=== PATIENT | male | born 1985 | race Caucasian/White ===

== ENCOUNTER 2024-05-30 00:21 | Emergency (ER) | payer OTHER, SELFPAY ==
[~2024-05-30] VITALS: Ht 170.2 cm; Wt 121.0 kg
[2024-05-30 00:24] VITALS: BP 140/100; TEMP 99.3; O2SAT 95
== END 2024-05-30 06:45 | disposition left against medical advice (07) ==
LOC: M ED 00:21
DX: Z53.21 Procedure and treatment not carried out due to patient leaving prior to being seen by health care provider (principal)

== ENCOUNTER → 2024-06-25 | Outpatient (CLI) | payer OTHER | LOC: M OUTALCOH 13:17 | PROVIDERS: ATTEND Psychiatry & Neurology Psychiatry | DX: F10.10 Alcohol abuse, uncomplicated (principal); F17.200 Nicotine dependence, unspecified, uncomplicated ==

== ENCOUNTER 2024-07-25 23:45 | Emergency (ER) | payer SELFPAY ==
[~2024-07-25] VITALS: Ht 177.8 cm; Wt 119.7 kg
[2024-07-25 23:53] VITALS: TEMP 98.4
[2024-07-26 00:15] VITALS: BP 144/96; O2SAT 94
== END 2024-07-26 00:51 | disposition home or self-care (01) ==
LOC: M ED 23:45
DX: F10.129 Alcohol abuse with intoxication, unspecified (principal); M54.50 Low back pain, unspecified

== ENCOUNTER 2024-08-06 23:23 | Emergency (ER) | payer SELFPAY ==
[~2024-08-06] VITALS: Ht 180.3 cm; Wt 102.3 kg
[2024-08-07 00:29] LABS: HEMATOCRIT 51.3 % (42.0-52.0); HEMOGLOBIN 17.5 g/dl (13.5-17.5); MEAN CORPUSCULAR HEMOGLOBIN 33.7 pg (27.0-33.0); MEAN CORPUSCULAR HGB CONC 34.1 g/dl (32.0-36.5); MEAN CORPUSCULAR VOLUME 98.7 fl (80.0-96.0); PLATELET COUNT, AUTOMATED 263 10^3/uL (150-450); WHITE BLOOD COUNT 7.7 10^3/uL (4.0-10.0)
[2024-08-07 00:50] LABS: ALBUMIN 4.1 G/DL (3.2-5.2); ALKALINE PHOSPHATASE 70 U/L (40-129); ALT/SGPT 230 U/L (7.0-40); AST/SGOT 166 U/L (<34); BILIRUBIN,DIRECT 0.3 MG/DL (<0.4); BILIRUBIN,TOTAL 0.6 MG/DL (0.3-1.2); BLOOD UREA NITROGEN 8 MG/DL (9-23); CALCIUM LEVEL 9.5 MG/DL (8.5-10.1); CARBON DIOXIDE LEVEL 28 MMOL/L (20-31); CHLORIDE LEVEL 105 MMOL/L (98-107); CREATININE FOR GFR 0.98 MG/DL (0.70-1.30); GLOMERULAR FILTRATION RATE > 60.0 (>60); GLUCOSE, FASTING 93 MG/DL (60-100); POTASSIUM SERUM 4.7 MMOL/L (3.5-5.1); SALICYLATE LEVEL < 3.0 MG/DL (<30); SODIUM LEVEL 145 MMOL/L (136-145); THYROID STIMULATING HORMONE 2.221 uIU/ML (0.55-4.78); TOTAL PROTEIN 7.7 G/DL (5.7-8.2)
[2024-08-07 09:06] LABS: AMPHETAMINES LEVEL URINE NEGATIVE (NEGATIVE); BARBITURATES URINE NEGATIVE (NEGATIVE); BENZODIAZEPINES URINE NEGATIVE (NEGATIVE); CANNABINOIDS URINE NEGATIVE (NEGATIVE); COCAINE METABOLITE URINE NEGATIVE (NEGATIVE); METHADONE URINE NEGATIVE (NEGATIVE); OPIATES URINE NEGATIVE (NEGATIVE); PHENCYCLIDINE URINE NEGATIVE (NEGATIVE)
[2024-08-07 11:30] VITALS: BP 150/94; TEMP 96.6; O2SAT 98
== END 2024-08-07 11:32 | disposition home or self-care (01) ==
LOC: M ED 23:23
DX: F10.14 Alcohol abuse with alcohol-induced mood disorder (principal)

== ENCOUNTER 2025-08-08 19:05 | Emergency (ER) | payer OTHER, SELFPAY ==
[~2025-08-08] VITALS: Ht 170.2 cm; Wt 102.3 kg
[2025-08-08 19:18] VITALS: BP 132/88; O2SAT 97
[2025-08-08 19:50] LABS: PLATELET COUNT, AUTOMATED 292 10^3/uL (150-450)
[2025-08-08 19:54] VITALS: TEMP 99.1
[2025-08-08 20:17] LABS: SALICYLATE LEVEL < 3.0 MG/DL (<30)
[2025-08-08 20:18] LABS: ALT/SGPT 191 U/L (7.0-40); AST/SGOT 273 U/L (<34); CALCIUM LEVEL 8.6 MG/DL (8.5-10.1); CARBON DIOXIDE LEVEL 22 MMOL/L (20-31); CHLORIDE LEVEL 104 MMOL/L (98-107); CREATININE FOR GFR 0.97 MG/DL (0.70-1.30); GLOMERULAR FILTRATION RATE > 90.0 (>60); POTASSIUM SERUM 4.1 MMOL/L (3.5-5.1); SODIUM LEVEL 142 MMOL/L (136-145)
[2025-08-08 20:56] LABS: ETHYL ALCOHOL (ETHANOL) 0.491 % (0.000-0.010)
== END 2025-08-08 21:19 | disposition left against medical advice (07) ==
LOC: M ED 19:05 → EDBD 19:05 → M ED 21:19
DX: F10.129 Alcohol abuse with intoxication, unspecified (principal); Z53.9 Procedure and treatment not carried out, unspecified reason

== ENCOUNTER → 2025-08-21 | Outpatient (CLI) | payer OTHER, SELFPAY | LOC: M OUTALCOH 08:50 | PROVIDERS: ATTEND Psychiatry & Neurology Psychiatry | DX: F10.20 Alcohol dependence, uncomplicated (principal) ==

== ENCOUNTER 2025-09-11 14:48 | Outpatient (RCR) | payer OTHER | END 2025-09-30 | LOC: M OUTALCOH 14:48 | PROVIDERS: ATTEND Psychiatry & Neurology Psychiatry | DX: F10.20 Alcohol dependence, uncomplicated (principal) ==